=== PATIENT | male | born 1965 | race African-American/Black ===

== ENCOUNTER 2024-11-26 20:23 | Inpatient (IN) | payer OTHER ==
[~2024-11-26] VITALS: Ht 182.9 cm; Wt 136.6 kg
--- NOTE | 2024-11-26 20:54 | ED.PDOC ---
History of Present Illness HPI Comments 59 Year old male who came to ER via EMS for dizziness. 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 He sat down on the curb as his dizziness worsened and persisted. He also had 3 episodes of watery blood-tinged diarrhea. Patient was tachycardic on scene. Patient denies any history of GI bleed. Patient has a syncopal attack while in the ER. Chief Complaint: Dizziness Time Seen by MD: 20:53 Reviewed Notes: Nurses Notes Allergies: Coded Allergies: NO KNOWN ALLERGIES (Unverified , 11/26/24) Information Source: Patient Mode of Arrival: EMS Severity: Moderate Timing: Hours Duration: Since onset Prehospital treatment: Oxygen Past Medical History PAST MEDICAL HISTORY: HTN Surgical History: Hernia Repair Family History Family History: Reviewed,noncontributory to illness Social History Smoker: Non-Smoker Alcohol: Denies ETOH Use Drugs: Denies Drug Use Lives In: Home Constitutional: reports: fatigue, weakness; denies: chills, diaphoresis, fever, malaise, sweats, others EENTM: denies: blurred vision, double vision, ear bleeding, ear discharge, ear drainage, ear pain, ear ringing, eye pain, eye redness, hearing loss, mouth pain, mouth swelling, nasal discharge, nose bleeding, nose congestion, nose pain, photophobia, tearing, throat pain, throat swelling, voice changes, others Respiratory: denies: cough, hemoptysis, orthopnea, SOB at rest, shortness of breath, SOB with excertion, stridor, wheezing, others Cardiovascular: denies: chest pain, dizzy spells, diaphoresis, Dyspnea on exertion, edema, irregular heart beat, left arm pain, lightheadedness, palpitations, PND, syncope, others Gastrointestinal: reports: blood streaked bowels, diarrhea; denies: abdomen distended, abdominal pain, constipated, dysphagia, difficulty swallowing, hematemesis, melena, nausea, poor appetite, poor fluid intake, rectal bleeding, rectal pain, vomiting, others Genitourinary: denies: burning, dysuria, flank pain, frequency, hematuria, incontinence, penile discharge, penile sore, pain, testicle pain, testicle swel ling, urgency, others Neurological: reports: dizziness; denies: fainting, headache, left sided numbness, left sided weakness, numbness, paresthesia, pre-existing deficit, right sided numbness, right sided weakness, seizure, speech problems, tingling, tremors, weakness, others Musculoskeletal: denies: back pain, gout, joint pain, joint swelling, muscle pain, muscle stiffness, neck pain, others Integumetry: denies: bruises, change in color, change in hair/nails, dryness, laceration, lesions, lumps, rash, wounds, others Allergic/Immunocompromised: denies: Difficulty Healing, Frequent Infections, Hives, Itching, others Hematologic/Lymphatic: denies: anemia, blood clots, easy bleeding, easy bruising, swollen glands, others Endocrine: denies: excessive hunger, excessive sweating, excessive thirst, excessive urination, flushing, intolerance to cold, intolerance to heat, unexplained weight gain, unexplained weight loss, others Psychiatric: denies: anxiety, bipolar disorder, depression, hopeless, panic disorder, schizophrenia, sleepless, suicidal, others Physical Exam General Appearance: No Apparent Distress, Normal HEENT: Normal ENT Inspection, Pharynx Normal, TMs Normal Neck: Full Range of Motion, Non-Tender, Normal, Normal Inspection Respiratory: Chest Non-Tender, Lungs Clear, No Accessory Muscle Use, No Respiratory Distress, Normal Breath Sounds Cardiovascular: No Edema, No JVD, No Murmur, No Gallop, Normal Peripheral Pulses, Regular Rate/Rhythm Breast Exam: Deferred Gastrointestinal: No Organomegaly, Non Tender, No Pulsatile Mass, Normal Bowel Sounds, Soft Genitalia: Deferred Pelvic: Deferred Rectal: Deferred Extremities: No calf tenderness, Normal capillary refill, Normal inspection, Normal range of motion, Non-tender, No pedal edema Musculoskeletal : Apperance: Normal Neurologic: Alert, rail splitter II-XII nml as Tested, No Motor Deficits, Normal Affect, Normal Mood, No Sensory Deficits Cerebellar Function: Normal Reflexes: Normal Skin: Dry, Normal Color, Warm Lymphatic: No Adenopathy Was a procedure done? Was a procedure done?: No Differential Dx Considerations may include: Anemia, electrolyte imbalance, GI bleeding, dehydration, dizziness X-Ray, Labs, Meds, VS Vital Signs Date Time Temp Pulse Resp B/P (MAP) Pulse Ox O2 Delivery O2 Flow Rate FiO2 11/26/24 21:50 98.1 93 12 112/72 (85) 100 98.1 11/26/24 21:38 90 19 100 Room Air* 0 21 11/26/24 20:33 97.6 114 18 123/86 95 97.6 11/26/24 20:30 113 Lab Test 11/26/24 21:28 Range/Units White Blood Count 13.5 H 4.4-10.8 10^3/uL Red Blood Count 3.33 L 4.5-5.90 10^6/uL Hemoglobin 9.8 L 13.5-17.5 g/dL Hematocrit 29.6 L 41.0-53.0 % Mean Corpuscular Volume 88.7 80.0-100.0 fL Mean Corpuscular Hemoglobin 29.4 28.0-32.0 pg Mean Corpuscular Hemoglobin Concent 33.1 32.0-36.0 g/dL Red Cell Distribution Width 15.3 H 11.8-14.3 % Platelet Count 293 140-450 10^3/uL Mean Platelet Volume 8.4 6.9-10.8 fL Neutrophils (%) (Auto) 69.5 37.0-80.0 % Lymphocytes (%) (Auto) 21.5 10.0-50.0 % Monocytes (%) (Auto) 7.9 0.0-12.0 % Eosinophils (%) (Auto) 0.5 0.0-7.0 % Basophils (%) (Auto) 0.6 0.0-2.0 % Neutrophils # (Auto) 9.4 H 1.6-8.6 10 ^3/uL Lymphocytes # (Auto) 2.9 0.4-5.4 10 ^3/uL Monocytes # (Auto) 1.1 0-1.3 10 ^3/uL Eosinophils # (Auto) 0.1 0-0.8 10 ^3/uL Basophils # (Auto) 0.1 0-0.2 10 ^3/uL Nucleated Red Blood Cells 0.1 % Prothrombin Time 11.5 9.3-11.8 sec Prothrombin Time INR 1.09 0.9-1.15 Activated Partial Thromboplast Time 22.7 L 24.5-34.5 SEC Sodium Level 144 136-145 mmol/L Potassium Level 3.8 3.5-5.1 mmol/L Chloride Level 114 H 98-107 mmol/L Carbon Dioxide Level 19 L 20-31 mmol/L Anion Gap 11 5-15 Blood Urea Nitrogen 8 L 9-23 mg/dL Creatinine 0.70 0.700-1.30 mg/dL Glomerular Filtration Rate Calc 105 >90 mL/min BUN/Creatinine Ratio 11.4 10.0-20.0 Serum Glucose 128 H 74-106 mg/dL Calcium Level 7.4 L 8.7-10.4 mg/dL Total Bilirubin 0.5 0.2-1.0 mg/dL Aspartate Amino Transferase (AST) 25 13-40 U/L Alanine Aminotransferase (ALT) 12 7-40 U/L Alkaline Phosphatase 54 46-116 U/L Total Protein 5.8 5.7-8.2 g/dL Albumin 3.3 3.2-4.8 g/dL Current Medications Medications (Trade) Dose Ordered Sig/Georgina Route Start Time Stop Time Status Last Admin Sodium Chloride 1,000 ml @ 1,000 mls/hr Q1H ONCE IV 11/26/24 21:00 11/26/24 21:59 DC 11/26/24 21:17 Pantoprazole Sodium (Protonix) 40 mg ONCE ONCE IV 11/26/24 21:00 11/26/24 21:01 DC 11/26/24 21:17 Time of 1ST Reevaluation: 20:50 Reevaluation 1ST: Unchanged Patient Education/Counseling: Diagnosis, Treatment Family Education/Counseling: No Family Present SEPSIS Sepsis Screen Physician Orders Type And Screen (11/26/24 20:47) Urinalysis (11/26/24 20:47) Stool Occult Blood (11/26/24 20:47) Heplock Iv (11/26/24 20:47) Ct Ab Pel With Iv Con Only (11/26/24 20:47) Electrocardigram (11/26/24 20:47) Packedcells -Active Bleeding (11/26/24 20:50) Vital Signs Date Time Temp Pulse Resp B/P (MAP) Pulse Ox O2 Delivery O2 Flow Rate FiO2 11/26/24 21:50 98.1 93 12 112/72 (85) 100 98.1 11/26/24 21:38 90 19 100 Room Air* 0 21 11/26/24 20:33 97.6 114 18 123/86 95 97.6 11/26/24 20:30 113 Laboratory Tests Test 9/29/25 21:28 White Blood Count 13.5 10^3/uL (4.4-10.8) H Medications Medications Dose Ordered Sig/Georgina Route Start Time Stop Time Status Last Admin Dose Admin Pantoprazole Sodium 40 mg ONCE ONCE IV 11/26/24 21:00 11/26/24 21:01 DC 11/26/24 21:17 Sodium Chloride 1,000 ml @ 1,000 mls/hr Q1H ONCE IV 11/26/24 21:00 11/26/24 21:59 DC 11/26/24 21:17 Departure 1 Departure Time of Disposition: 00:45 Impression: Primary Impression: Lower GI bleed Additional Impressions: Syncope Hypotension Disposition: ADMITTED INPATIENT Admit to: Tele Condition: Guarded Discharged With: Self Comments Patient with significant bright red blood per rectum. Patient had hypotension and syncope prior to arrival. Patient was given IV fluids and Protonix. On lab review patient is mildly anemic with H and H of [address] of the abdomen and pelvis was performed and shows no obvious pathology. Patient will need to be admitted for lower GI bleed and syncope and hypotension Critical Care Note Critical Care Time?: Yes (35 min-critical care time only) Critical care comment: Active GI bleeding Total critical care time: Approximately 36 minutes Due to a high probability of clinically significant, life threatening deterioration, the patient required my highest level of preparedness to intervene emergently and I personally spent this critical care time directly and personally managing the patient. This critical care time included obtaining a history; examining the patient; pulse oximetry; ordering and review of studies; arranging urgent treatment with development of a management plan; evaluation of patient's response to treatment; frequent reassessment; and, discussions with other providers. This critical care time was performed to assess and manage the high probability of imminent, life-threatening deterioration that could result in multi-organ failure. It was exclusive of separately billable procedures and treating other patients. Stability Stability form required: No Heart Score Heart Score: Heart Score Response (Comments) Value History N/A 0 EKG N/A 0 Age N/A 0 Risk Factors N/A 0 Troponin N/A 0 Total 0 I personally scribed for BRENDA JANSEN MD ([email or web address]) on 11/26/24 at 20:53. Electronically submitted by Kali Gandhi ([facility]). BRENDA JANSEN MD Nov 26, 2024 20:53
[2024-11-26] MEDS: PANTOPRAZOLE 40 MG/10 ML VIAL INJ IV ONE (21:17)
[2024-11-26] MEDS: SODIUM CHLORIDE 0.9% 1,000 ML IV ONE (21:17)
[2024-11-26 21:38] VITALS: PULSE 90; RESP 19; O2SAT 100
[2024-11-26 22:06] LABS: Hematocrit 29.6 % (41.0-53.0); Hemoglobin 9.8 g/dL (13.5-17.5); Mean Corpuscular Hemoglobin 29.4 pg (28.0-32.0); Mean Corpuscular Volume 88.7 fL (80.0-100.0); Nucleated Red Blood Cells % 0.1 %
[2024-11-26 22:18] LABS: INR 1.09 (0.9-1.15); Partial Thromboplastin Time 22.7 SEC (24.5-34.5); Prothrombin Time 11.5 sec (9.3-11.8)
[2024-11-26 22:24] LABS: Alanine Aminotransferase 12 U/L (7-40); Albumin 3.3 g/dL (3.2-4.8); Alkaline Phosphatase 54 U/L (46-116); Anion Gap 11 (5-15); BUN/Creatinine Ratio 11.4 (10.0-20.0); Bilirubin, Total 0.5 mg/dL (0.2-1.0); Blood Urea Nitrogen 8 mg/dL (9-23); Calcium 7.4 mg/dL (8.7-10.4); Carbon Dioxide 19 mmol/L (20-31); Chloride 114 mmol/L (98-107); Glucose 128 mg/dL (74-106); Potassium 3.8 mmol/L (3.5-5.1); Sodium 144 mmol/L (136-145); Total Protein 5.8 g/dL (5.7-8.2)
[2024-11-26] MEDS: IOHEXOL 300 MG/ML 100ML BOTTLE IJ ONE (22:51)
[2024-11-27] VITALS (7 sets, daily range): BP systolic 115–148; BP diastolic 71–85; PULSE 83–92; RESP 18–20; TEMP 97.8–98.6; O2SAT 96–98
--- NOTE | 2024-11-27 00:14 | DVH ---
Exam: CT CT AB PEL WITH IV CON ONLY History: GI bleed Comparison Study: None TECHNIQUE: A digital wireless network engineer image was obtained. During the uneventful, intravenous administration of c ontrast material, multislice data acquisition was obtained through the abdomen and pelvis. The data s et was subsequently reconstructed into multiplanar reformats. RADIATION DOSE: CTDI vol 27.87 mGy. DLP 1602.2 mGy.cm Findings: Evaluation is degraded by motion and streak artifact. Lungs: The lung bases are clear. Liver: Unremarkable. Spleen: Small splenule. Pancreas: Unremarkable. Gallbladder: Unremarkable. Adrenals: Unremarkable Kidneys: Unremarkable. Pelvic Viscera: Unremarkable. Vasculature: Unremarkable. Retroperitoneum: Unremarkable. Bowel: No bowel obstruction. Musculoskeletal: Unremarkable. Soft tissues: Unremarkable Impression: 1. No acute abdominopelvic abnormality. 2. Suboptimal assessment for active bleeding, if there is clinical concern, CTA may be beneficial in further assessment.
[2024-11-27] MEDS ORDERED: ONDANSETRON HCL 4 MG/2 ML VIAL IV PRN (01:30)
[2024-11-27] MEDS: SODIUM CHLORIDE 0.9% 1,000 ML IV ONE (02:23)
--- NOTE | 2024-11-27 03:55 | DVHHP2 ---
History of Present Illness Reason for Visit: GI bleed History of Present Illness 59-year-old male presents for evaluation of GI bleed. Patient presents with complaints of dizziness for the past two days. Has a reports having three episodes of bloody diarrhea. No headache or blurred vision. No chest pain or shortness for breath. Past Medical History Hypertension Past Surgical History Hernia repair Family History Noncontributory Smoke: No ALCOHOL: none Drugs: None Lives: with Family Review of Systems Review of Systems Review of systems are currently negative otherwise addressed in HPI. Allergies: Coded Allergies: NO KNOWN ALLERGIES (Unverified , 11/26/24) Medications Current Medications Medications Dose Ordered Sig/Georgina Route Start Time Stop Time Status Last Admin Dose Admin Pantoprazole Sodium 40 mg BID IV 11/27/24 10:00 Ondansetron HCl 4 mg Q4HP PRN IV 11/27/24 01:30 Exam Vital Signs Vital Signs Date Time Temp Pulse Resp B/P (MAP) Pulse Ox O2 Delivery O2 Flow Rate FiO2 11/26/24 23:50 96 12 116/71 (86) 100 11/26/24 21:50 98.1 98.1 11/26/24 21:38 Room Air* 0 21 Exam Gen: 59-year-old male in mild distress Skin: Warm, dry, normal color and texture, no rash. HEENT: Normocephalic atraumatic, mucous membranes moist and pink. Neck: Cervical and supraclavicular nodes normal without enlargement, trachea is midline, thyroid gland is normal without masses. Pulmonary: Clear to auscultation and percussion bilaterally. Cardiac: Sinus tachycardia Abdomen: Soft, nontender, nondistended, bowel sounds present all 4 quadrants, no guarding, no rigidity, no organomegaly. Extremities: No cyanosis, clubbing, no edema Neuro: Cranial nerves II through XII grossly intact, normal affect and speech, no focal motor deficits. Labs/Xrays ORDERING PHYSICIAN: BRENDA JANSEN MD PROCEDURE(s): ABPLIV - CT AB PEL WITH IV CON ONLY REASON: GI bleed ORDER NUMBER(s): [id number], ACCESSION NUMBER(s): [id number] Exam: CT CT AB PEL WITH IV CON ONLY History: GI bleed Comparison Study: None TECHNIQUE: A digital dog or horse racing official image was obtained. During the uneventful, intravenous administration of contrast material, multislice data acquisition was obtained through the abdomen and pelvis. The data set was subsequently reconstructed into multiplanar reformats. RADIATION DOSE: CTDI vol 27.87 mGy. DLP 1602.2 mGy.cm Findings: Evaluation is degraded by motion and streak artifact. Lungs: The lung bases are clear. Liver: Unremarkable. Spleen: Small splenule. Pancreas: Unremarkable. Gallbladder: Unremarkable. Adrenals: Unremarkable Kidneys: Unremarkable. Pelvic Viscera: Unremarkable. Vasculature: Unremarkable. Retroperitoneum: Unremarkable. Bowel: No bowel obstruction. Musculoskeletal: Unremarkable. Soft tissues: Unremarkable Impression: 1. No acute abdominopelvic abnormality. 2. Suboptimal assessment for active bleeding, if there is clinical concern, CTA may be beneficial in further assessment. Labs Test 11/26/24 21:28 Range/Units White Blood Count 13.5 H 4.4-10.8 10^3/uL Red Blood Count 3.33 L 4.5-5.90 10^6/uL Hemoglobin 9.8 L 13.5-17.5 g/dL Hematocrit 29.6 L 41.0-53.0 % Mean Corpuscular Volume 88.7 80.0-100.0 fL Mean Corpuscular Hemoglobin 29.4 28.0-32.0 pg Mean Corpuscular Hemoglobin Concent 33.1 32.0-36.0 g/dL Red Cell Distribution Width 15.3 H 11.8-14.3 % Platelet Count 293 140-450 10^3/uL Mean Platelet Volume 8.4 6.9-10.8 fL Neutrophils (%) (Auto) 69.5 37.0-80.0 % Lymphocytes (%) (Auto) 21.5 10.0-50.0 % Monocytes (%) (Auto) 7.9 0.0-12.0 % Eosinophils (%) (Auto) 0.5 0.0-7.0 % Basophils (%) (Auto) 0.6 0.0-2.0 % Neutrophils # (Auto) 9.4 H 1.6-8.6 10 ^3/uL Lymphocytes # (Auto) 2.9 0.4-5.4 10 ^3/uL Monocytes # (Auto) 1.1 0-1.3 10 ^3/uL Eosinophils # (Auto) 0.1 0-0.8 10 ^3/uL Basophils # (Auto) 0.1 0-0.2 10 ^3/uL Nucleated Red Blood Cells 0.1 % Prothrombin Time 11.5 9.3-11.8 sec Prothrombin Time INR 1.09 0.9-1.15 Activated Partial Thromboplast Time 22.7 L 24.5-34.5 SEC Sodium Level 144 136-145 mmol/L Potassium Level 3.8 3.5-5.1 mmol/L Chloride Level 114 H 98-107 mmol/L Carbon Dioxide Level 19 L 20-31 mmol/L Anion Gap 11 5-15 Blood Urea Nitrogen 8 L 9-23 mg/dL Creatinine 0.70 0.700-1.30 mg/dL Glomerular Filtration Rate Calc 105 >90 mL/min BUN/Creatinine Ratio 11.4 10.0-20.0 Serum Glucose 128 H 74-106 mg/dL Calcium Level 7.4 L 8.7-10.4 mg/dL Total Bilirubin 0.5 0.2-1.0 mg/dL Aspartate Amino Transferase (AST) 25 13-40 U/L Alanine Aminotransferase (ALT) 12 7-40 U/L Alkaline Phosphatase 54 46-116 U/L Total Protein 5.8 5.7-8.2 g/dL Albumin 3.3 3.2-4.8 g/dL SEPSIS Sepsis Screen Date sepsis recognized/suspect: Nov 26, 2024 Time Sepsis recognized/suspect: 2147 Recent Procedure: No On Antibiotic Therapy: No Respiratory Rate >20: No Heart Rate >90: Yes Temp<36 C (96.8 F) or >38.3 C: No SBP <90 or MAP <65 mmHG: No New Acute Mental Status Change: No Is the patient on CPAP, BIPAP,: No Physician Orders Type And Screen (11/26/24 20:47) Urinalysis (11/26/24 20:47) Stool Occult Blood (11/26/24 20:47) Heplock Iv (11/26/24 20:47) Ct Ab Pel With Iv Con Only (11/26/24 20:47) Electrocardigram (11/26/24 20:47) Hemoglobin & Hematocrit (11/27/24 04:00) Basic Metabolic Panel (11/28/24 04:00) Sodium Chloride 0.9% (11/27/24 01:30) * Gi [facility] Music Intern (11/27/24 01:24) Pantoprazole (Protonix) (11/27/24 10:00) Admit (11/27/24 01:24) Ondansetron Hcl (Zofran) (11/27/24 01:30) Complete Blood Count (11/28/24 04:00) Npo (Nothing By Mouth) Diet (11/27/24 Breakfast) Condition: Stable (11/27/24 01:24) Bedrest With Bathroom Privileg (11/27/24 01:24) Vital Signs Date Time Temp Pulse Resp B/P (MAP) Pulse Ox O2 Delivery O2 Flow Rate FiO2 11/26/24 23:50 96 12 116/71 (86) 100 11/26/24 21:50 98.1 93 12 112/72 (85) 100 98.1 11/26/24 21:38 90 19 100 Room Air* 0 21 11/26/24 20:52 97 11/26/24 20:33 97.6 114 18 123/86 95 97.6 11/26/24 20:30 113 Laboratory Tests Test 11/26/24 21:28 White Blood Count 13.5 10^3/uL (4.4-10.8) H Medications Medications Dose Ordered Sig/Georgina Route Start Time Stop Time Status Last Admin Dose Admin Pantoprazole Sodium 40 mg ONCE ONCE IV 11/26/24 21:00 11/26/24 21:01 DC 11/26/24 21:17 40 MG Sodium Chloride 1,000 ml @ 80 mls/hr [id number] ONCE IV 11/27/24 01:30 11/27/24 13:59 11/27/24 02:23 80 MLS/HR Sodium Chloride 1,000 ml @ 1,000 mls/hr Q1H ONCE IV 11/26/24 21:00 11/26/24 21:59 DC 11/26/24 21:17 1,000 MLS/HR Assessment/Plan Assessment/Plan Assessment GI bleed Mild anemia secondary to the above Plan Admit the patient to [facility] to the hospitalist Protonix, maintenance IV fluids NPO GI consult Continue treatment per orders. Plan discussed with: Patient My Orders Orders - LESLY MONTGOMERY Procedure Category Date Status Time Hemoglobin & LAB 11/27/24 Logged Hematocrit 04:00 Basic Metabolic Panel LAB 11/28/24 Verified 04:00 Sodium Chloride 0.9% PHA 11/27/24 In Process 01:30 * Gi [facility] [employer] Intern CONS 11/27/24 Transmitted 01:24 Pantoprazole PHA 11/27/24 In Process (Protonix) 10:00 Admit ADMIT 11/27/24 Transmitted 01:24 Ondansetron Hcl PHA 11/27/24 In Process (Zofran) 01:30 Complete Blood Count LAB 11/28/24 Verified 04:00 Npo (Nothing By DIET 11/27/24 Transmitted Mouth) Diet Breakfast Condition: Stable ROVERTO 11/27/24 In Process 01:24 Bedrest With Bathroom ROVERTO 11/27/24 In Process Privileg 01:24 Date of Service: Nov 27, 2024 Billing Provider: LESLY MONTGOMERY Common Visit Codes: [id number] INP/OBS CARE (HIGH) LESLY MONTGOMERY Nov 27, 2024 03:55
--- NOTE | 2024-11-27 06:25 | ECG ---
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
[2024-11-27 06:42] LABS: Hematocrit 30.3 % (41.0-53.0); Hemoglobin 10.4 g/dL (13.5-17.5)
[2024-11-27 09:43] LABS: Urine Protein, UAD Negative (Negative)
[2024-11-27] MEDS: PANTOPRAZOLE 40 MG/10 ML VIAL INJ IV SCH (10:34)
--- NOTE | 2024-11-27 12:58 | DVHINCON2 ---
GI Consult Consult Note GI consult note Date of Consultation: 11/27/2024 Chief Complaint: GI bleed Referring Physician: Abraham RAMIREZ H&P: 59-year-old male presented to ER with complains of dizziness, and had an episode of syncope while in ER. Patient also complaining of rectal bleeding. Only having red blood rectally for one day about four episodes yesterday and one episode today. No rectal pain. Denies hemorrhoids. Patient is status post hemorrhoid surgery one year ago. Last colonoscopy nine years ago unsure about results. Patient denies abdominal pain, slight nausea, denies vomiting. Takes aspirin 81 mg every day last dosage yesterday Past Medical History: Hypertension Past Surgical History: Hernia repair, hemorrhoid surgery Social History: NO smoking, drinking ETOH and use of illegal drugs. Family History: Noncontributory Review of Systems: Constitutional: no fever, chill, weight loss HEENT: no eye pain, no hearing loss, no oral lesion, no scleral icterus Heart: no chest pain, no chest pressure Lung: no cough, no dyspnea with exertion Abdomen: see HPI Physical exam: General: NAD, AAOX3 Chest: lung felder clear to auscultation Heart: RRR, no murmur Abdomen: non-distended, no tenderness to palpation, +BS Labs: Labs Test 11/27/24 06:25 11/27/24 02:50 11/26/24 21:28 11/26/24 09:26 Range/Units Hemoglobin 10.4 L 13.5-17.5 g/dL Hematocrit 30.3 L 41.0-53.0 % Stool Occult Blood Positive Negative Stool Occult Blood Sample #3 Negative White Blood Count 13.5 H 4.4-10.8 10^3/uL Red Blood Count 3.33 L 4.5-5.90 10^6/uL Mean Corpuscular Volume 88.7 80.0-100.0 fL Mean Corpuscular Hemoglobin 29.4 28.0-32.0 pg Mean Corpuscular Hemoglobin Concent 33.1 32.0-36.0 g/dL Red Cell Distribution Width 15.3 H 11.8-14.3 % Platelet Count 293 140-450 10^3/uL Mean Platelet Volume 8.4 6.9-10.8 fL Neutrophils (%) (Auto) 69.5 37.0-80.0 % Lymphocytes (%) (Auto) 21.5 10.0-50.0 % Monocytes (%) (Auto) 7.9 0.0-12.0 % Eosinophils (%) (Auto) 0.5 0.0-7.0 % Basophils (%) (Auto) 0.6 0.0-2.0 % Neutrophils # (Auto) 9.4 H 1.6-8.6 10 ^3/uL Lymphocytes # (Auto) 2.9 0.4-5.4 10 ^3/uL Monocytes # (Auto) 1.1 0-1.3 10 ^3/uL Eosinophils # (Auto) 0.1 0-0.8 10 ^3/uL Basophils # (Auto) 0.1 0-0.2 10 ^3/uL Nucleated Red Blood Cells 0.1 % Prothrombin Time 11.5 9.3-11.8 sec Prothrombin Time INR 1.09 0.9-1.15 Activated Partial Thromboplast Time 22.7 L 24.5-34.5 SEC Sodium Level 144 136-145 mmol/L Potassium Level 3.8 3.5-5.1 mmol/L Chloride Level 114 H 98-107 mmol/L Carbon Dioxide Level 19 L 20-31 mmol/L Anion Gap 11 5-15 Blood Urea Nitrogen 8 L 9-23 mg/dL Creatinine 0.70 0.700-1.30 mg/dL Glomerular Filtration Rate Calc 105 >90 mL/min BUN/Creatinine Ratio 11.4 10.0-20.0 Serum Glucose 128 H 74-106 mg/dL Calcium Level 7.4 L 8.7-10.4 mg/dL Total Bilirubin 0.5 0.2-1.0 mg/dL Aspartate Amino Transferase (AST) 25 13-40 U/L Alanine Aminotransferase (ALT) 12 7-40 U/L Alkaline Phosphatase 54 46-116 U/L Total Protein 5.8 5.7-8.2 g/dL Albumin 3.3 3.2-4.8 g/dL Urine Color Yellow Yellow Urine Clarity Clear Clear Urine pH 5.0 5.0-9.0 Urine Specific [place] 1.050 H 1.001-1.035 Urine Protein Negative Negative Urine Ketones Negative Negative Urine Blood 1+ H Negative /uL Urine Nitrite Negative Negative Urine Bilirubin Negative Negative Urine Urobilinogen Normal Negative mg/dL Urine Leukocyte Esterase Negative Negative /uL Urine RBC 3 0 - 3 /hpf Urine Microscopic WBC 2 0-3 /HPF Urine Squamous Epithelial Cells Few <5 /hpf Urine Bacteria None seen None Seen /hpf Urine Mucus Few None Seen Urine Glucose Normal Normal mg/dL Imaging: CT abdomen pelvis Impression: 1. No acute abdominopelvic abnormality. 2. Suboptimal assessment for active bleeding, if there is clinical concern, CTA may be beneficial in further assessment. Assessment: GI bleed History of hemorrhoids Plan: Discussed with Dr. Leonard - Pt will be scheduled for colonoscopy tomorrow 11/28/2024. Pt was informed of the risks (bleeding, infection, perforation, reaction to sedation medications and cardiopulmonary arrest) and benefit and is agreeable to undergo the procedures. Discussed plan with patient and RN Thank you for this consult Date of Service: Nov 27, 2024 Billing Provider: ROGER DAMON Common Visit Codes: CONSULT ONLY Consultation Codes: [id number] CONSULT <60MIN ROGER DAMON Nov 27, 2024 12:58
--- NOTE | 2024-11-27 13:35 | DVHPN2 ---
Reviewed: H&P Changes from previous H/P or p: No Changes General: Per HPI Objective Vitals Vital Signs Date Time Temp Pulse Resp B/P (MAP) Pulse Ox O2 Delivery O2 Flow Rate FiO2 11/27/24 08:00 88 18 96 Room Air* 0 21 11/27/24 08:00 98.4 122/73 (89) 98.4 Intake/Output Intake and Output 11/27/24 07:00 Intake Total 1300 ml Balance 1300 ml Intake IV Total 1000 ml Other 300 ml # Bowel Movements 2 Exam Gen: 59-year-old male in mild distress Skin: Warm, dry, normal color and texture, no rash. HEENT: Normocephalic atraumatic, mucous membranes moist and pink. Neck: Cervical and supraclavicular nodes normal without enlargement, trachea is midline, thyroid gland is normal without masses. Pulmonary: Clear to auscultation and percussion bilaterally. Cardiac: Sinus tachycardia Abdomen: Soft, nontender, nondistended, bowel sounds present all 4 quadrants, no guarding, no rigidity, no organomegaly. Extremities: No cyanosis, clubbing, no edema Neuro: Cranial nerves II through XII grossly intact, normal affect and speech, no focal motor deficits. Medications Current Medications Medications Dose Ordered Sig/Georgina Route Start Time Stop Time Status Last Admin Dose Admin Pantoprazole Sodium 40 mg BID IV 11/27/24 10:00 11/27/24 10:34 40 MG Ondansetron HCl 4 mg Q4HP PRN IV 11/27/24 01:30 Laboratory Results Laboratory Tests 11/26/24 21:28 11/27/24 06:25 Chemistry Test 11/26/24 21:28 Albumin 3.3 g/dL (3.2-4.8) Calcium Level 7.4 mg/dL (8.7-10.4) L Total Protein 5.8 g/dL (5.7-8.2) Coagulation Test 11/26/24 21:28 Prothrombin Time 11.5 sec (9.3-11.8) Prothrombin Time INR 1.09 (0.9-1.15) Activated Partial Thromboplast Time 22.7 SEC (24.5-34.5) L LFT Test 11/26/24 21:28 Alanine Aminotransferase (ALT) 12 U/L (7-40) Alkaline Phosphatase 54 U/L (46-116) Aspartate Amino Transferase (AST) 25 U/L (13-40) Total Bilirubin 0.5 mg/dL (0.2-1.0) Urinalysis Test 11/26/24 09:26 Urine Color Yellow (Yellow) Urine Clarity Clear (Clear) Urine pH 5.0 (5.0-9.0) Urine Specific [place] 1.050 (1.001-1.035) Urine Protein Negative (Negative) Urine Ketones Negative (Negative) Urine Blood 1+ /uL (Negative) H Urine Nitrite Negative (Negative) Urine Bilirubin Negative (Negative) Urine Urobilinogen Normal mg/dL (Negative) Urine Leukocyte Esterase Negative /uL (Negative) Urine RBC 3 /hpf (0 - 3) Urine Microscopic WBC 2 /HPF (0-3) Urine Squamous Epithelial Cells Few /hpf (<5) Urine Bacteria None seen /hpf (None Seen) Urine Mucus Few (None Seen) Urine Glucose Normal mg/dL (Normal) Labs and/or images reviewed: Labs reviewed by me, Image(s) reviewed by me Assessment/Plan Assessment/Plan 59-year-old male past medical history hypertension presents for evaluation of GI bleed. Patient presents with complaints of dizziness for the past two days. Has a reports having three episodes of bloody diarrhea. No headache or blurred vision. No chest pain or shortness for breath. 11/27, patient admitted overnight, GI is following, started on Protonix NPO. GI plan for colonoscopy tomorrow 11/28. Type and screen was done, patient B positive, 1 unit RBC was given.. Patient's specific gravity on UA is 1.050, significant intravascular volume depletion Diagnosis Lower GI bleed Anemia due to above Leukocytosis, reactive likely, likely due to above Intravascular volume depletion Neutrophilia Hyper tension plan: Protonix GI consult Colonoscopy pending, NPO midnight Typed and screened Med surge Full code Plan discussed with: Patient Date of Service: Nov 27, 2024 Billing Provider: RIKI LEVY MD Common Visit Codes: [id number] INP/OBS CARE(HIGH) RIKI LEVY MD Nov 27, 2024 13:35
[2024-11-27] MEDS: GOLYTELY 4L KIT PO ONE ×2 (15:45→18:04)
[2024-11-28] VITALS (9 sets, daily range): BP systolic 116–133; BP diastolic 70–83; PULSE 89–100; RESP 15–20; TEMP 97.7–98.6; O2SAT 94–99
--- NOTE | 2024-11-28 05:00 | DVH ---
CHEST RADIOGRAPH Indication: PT GOING FOR PROCEDURE Technique: Single frontal view of the chest was obtained COMPARISON: None FINDINGS: Lines and Tubes: None Lungs: Clear Pleura: No effusion. No pneumothorax. Cardiomediastinal contours: Unremarkable Bones: Unremarkable IMPRESSION: 1. No acute disease.
[2024-11-28] MEDS: MAGNESIUM CITRATE SOLUTION 300 ML BTL PO ONE (05:28)
[2024-11-28 06:45] LABS: Hematocrit 25.0 % (41.0-53.0); Hemoglobin 8.6 g/dL (13.5-17.5); Mean Corpuscular Hemoglobin 29.6 pg (28.0-32.0); Mean Corpuscular Volume 85.9 fL (80.0-100.0); Nucleated Red Blood Cells % 0.0 %
[2024-11-28 06:56] LABS: Anion Gap 7 (5-15); Carbon Dioxide 29 mmol/L (20-31)
[2024-11-28 06:59] LABS: Calcium 8.0 mg/dL (8.7-10.4); Chloride 109 mmol/L (98-107); Potassium 3.3 mmol/L (3.5-5.1); Sodium 145 mmol/L (136-145)
[2024-11-28 07:01] LABS: BUN/Creatinine Ratio 13.0 (10.0-20.0); Glucose 103 mg/dL (74-106)
[2024-11-28 07:07] LABS: Blood Urea Nitrogen 9 mg/dL (9-23)
--- NOTE | 2024-11-28 11:41 | DVHPN2 ---
Reviewed: H&P Changes from previous H/P or p: No Changes General: Per HPI Objective Vitals Vital Signs Date Time Temp Pulse Resp B/P (MAP) Pulse Ox O2 Delivery O2 Flow Rate FiO2 11/28/24 09:00 97.7 95 20 116/70 (85) 99 97.7 11/28/24 08:00 Room Air* 0 21 Intake/Output Intake and Output 11/28/24 07:00 Intake Total 1840 ml Balance 1840 ml Intake Oral 1200 ml IV Total 640 ml # Voids 5 # Bowel Movements 9 Medications Current Medications Medications Dose Ordered Sig/Georgina Route Start Time Stop Time Status Last Admin Dose Admin Pantoprazole Sodium 40 mg BID IV 11/27/24 10:00 11/28/24 09:21 40 MG Ondansetron HCl 4 mg Q4HP PRN IV 11/27/24 01:30 Laboratory Results Laboratory Tests 11/28/24 04:46 Chemistry Test 11/28/24 04:46 Calcium Level 8.0 mg/dL (8.7-10.4) L Urinalysis Test 11/26/24 09:26 Urine Color Yellow (Yellow) Urine Clarity Clear (Clear) Urine pH 5.0 (5.0-9.0) Urine Specific [place] 1.050 (1.001-1.035) Urine Protein Negative (Negative) Urine Ketones Negative (Negative) Urine Blood 1+ /uL (Negative) H Urine Nitrite Negative (Negative) Urine Bilirubin Negative (Negative) Urine Urobilinogen Normal mg/dL (Negative) Urine Leukocyte Esterase Negative /uL (Negative) Urine RBC 3 /hpf (0 - 3) Urine Microscopic WBC 2 /HPF (0-3) Urine Squamous Epithelial Cells Few /hpf (<5) Urine Bacteria None seen /hpf (None Seen) Urine Mucus Few (None Seen) Urine Glucose Normal mg/dL (Normal) Labs and/or images reviewed: Labs reviewed by me, Image(s) reviewed by me Assessment/Plan Assessment/Plan Covering for Dr. Wilkes Lower GI bleed : GI consult by Dr. Leonard appreciated, patient getting colonoscopy today Anemia due to above Leukocytosis, reactive likely, likely due to above Intravascular volume depletion Neutrophilia Hypertension Plan discussed with: Patient Date of Service: Nov 28, 2024 Billing Provider: PURVI DAMON MD Common Visit Codes: [id number] INP/OBS CARE(HIGH) PURVI DAMON MD Nov 28, 2024 11:41
[2024-11-28] MEDS: POTASSIUM CHL 20MEQ/100ML 100 ML IV ONE ×3 (11:45→19:19)
[2024-11-28] MEDS ORDERED: MIDAZOLAM HCL 2MG/2ML 2ml VIAL (1mg/ml) ONE (12:39)
[2024-11-28] MEDS ORDERED: fentaNYL CITRATE 100 MCG/2 ML VL ONE (12:39)
[2024-11-28] MEDS ORDERED: PROPOFOL 10 MG/ML 20 ML IV ONE (12:47)
--- NOTE | 2024-11-28 13:13 | DVHOP2 ---
Operative Report DATE OF OPERATION: 11/28/24 PROCEDURE: Diagnostic Colonoscopy. PREOPERATIVE INDICATION: The patient is a 59 -year-old male undergoing colonoscopy for rectal bleeding POSTOPERATIVE DIAGNOSES: 1. Patient had moderate amount of blood and clots present throughout the colon more prominent in the left colon 2. The patient had extensive scattered diverticular disease which was the likely source of bleeding but single clear-cut source was identified 3. 1+internal external hemorrhoids otherwise normal examination up to the cecum and terminal ileum PROCEDURE PERFORMED BY: Zaire Leonard M.D. SCOPE: Olympus videocolonoscope. ASA CLASS: 2 PREOPERATIVE MEDICATIONS: Mac sedation, Dr. Wolfe PROCEDURE IN DETAIL: After obtaining an informed consent, the patient was placed on left lateral decubitus position. He was then sedated with the above medications. A rectal examination was performed that was normal. The colonoscope was then passed through the anus into the rectosigmoid and through the descending, transverse, and ascending colon up to the cecum with visualization of the appendiceal orifice, base of the cecum and the ileocecal valve. The colonoscope was then withdrawn. The distal 5-10 cm of the terminal ileum were normal The patient had moderate amount of blood and clots present throughout the colon more prominent in the left colon There was no bleeding in the distal small bowel and minimal blood in the cecal area. Patient had extensive scattered diverticular disease most prominent in the sigmoid The moderate amount of blood was mostly in the left colon up to the splenic flexure After irrigation aspiration no gross lesions were clearly be identified however the visualization was suboptimal due to clots and blood and red liquid in the colon On retroflexion and straight on view the patient did have trace to 1+ internal hemorrhoids The patient tolerated the procedure well without difficulty. WITHDRAWAL TIME: 7 minutes QUALITY OF THE PREP: [place] Bowel Prep score: Six COMPLICATIONS : None SPECIMENS: None DISPOSITION: Transfer back to the floor Stable PLAN: 1. Continue to monitor in a monitored bed 2.Monitor serial H&H and transfuse again if hemoglobin drops below 8 3. NPO except for ice chips and clear liquids 4. If bleeding continues consider CT angiogram ZAIRE LEONARD MD Nov 28, 2024 13:12
[2024-11-28 19:20] LABS: Hematocrit 24.3 % (41.0-53.0); Hemoglobin 8.5 g/dL (13.5-17.5); Mean Corpuscular Hemoglobin 29.2 pg (28.0-32.0); Mean Corpuscular Volume 83.9 fL (80.0-100.0); Nucleated Red Blood Cells % 0.0 %
[2024-11-29] VITALS (8 sets, daily range): BP systolic 106–135; BP diastolic 60–76; PULSE 57–96; RESP 17–20; TEMP 97.9–98.6; O2SAT 95–98
[2024-11-29 06:05] LABS: Hematocrit 21.7 % (41.0-53.0); Hemoglobin 7.4 g/dL (13.5-17.5); Mean Corpuscular Hemoglobin 28.4 pg (28.0-32.0); Mean Corpuscular Volume 83.5 fL (80.0-100.0); Nucleated Red Blood Cells % 0.0 %
[2024-11-29 06:27] LABS: Alanine Aminotransferase 11 U/L (7-40); Anion Gap 7 (5-15); Carbon Dioxide 25 mmol/L (20-31); Potassium 3.9 mmol/L (3.5-5.1); Sodium 143 mmol/L (136-145)
[2024-11-29 06:28] LABS: Bilirubin, Total 0.4 mg/dL (0.2-1.0)
[2024-11-29 06:31] LABS: Albumin 3.1 g/dL (3.2-4.8); Alkaline Phosphatase 46 U/L (46-116); BUN/Creatinine Ratio 7.9 (10.0-20.0); Blood Urea Nitrogen < 5 mg/dL (9-23); Calcium 8.0 mg/dL (8.7-10.4); Chloride 111 mmol/L (98-107); Glucose 109 mg/dL (74-106); Total Protein 5.3 g/dL (5.7-8.2)
--- NOTE | 2024-11-29 12:42 | DVHPN2 ---
Reviewed: H&P Changes from previous H/P or p: No Changes General: Per HPI Objective Vitals Vital Signs Date Time Temp Pulse Resp B/P (MAP) Pulse Ox O2 Delivery O2 Flow Rate FiO2 11/29/24 09:00 98.0 57 17 135/70 (91) 98 98.0 11/29/24 08:00 Room Air* 0 21 Intake/Output Intake and Output 11/29/24 07:00 Intake Total 1400 ml Balance 1400 ml Intake Oral 1200 ml IV Total 200 ml # Voids 9 Exam Gen: 59-year-old male in mild distress Skin: Warm, dry, normal color and texture, no rash. HEENT: Normocephalic atraumatic, mucous membranes moist and pink. Neck: Cervical and supraclavicular nodes normal without enlargement, trachea is midline, thyroid gland is normal without masses. Pulmonary: Clear to auscultation and percussion bilaterally. Cardiac: Sinus tachycardia Abdomen: Soft, nontender, nondistended, bowel sounds present all 4 quadrants, no guarding, no rigidity, no organomegaly. Extremities: No cyanosis, clubbing, no edema Neuro: Cranial nerves II through XII grossly intact, normal affect and speech, no focal motor deficits. Medications Current Medications Medications Dose Ordered Sig/Georgina Route Start Time Stop Time Status Last Admin Dose Admin Pantoprazole Sodium 40 mg BID IV 11/27/24 10:00 11/29/24 09:03 40 MG Ondansetron HCl 4 mg Q4HP PRN IV 11/27/24 01:30 Laboratory Results Laboratory Tests 11/29/24 05:29 Chemistry Test 11/29/24 05:29 Albumin 3.1 g/dL (3.2-4.8) L Calcium Level 8.0 mg/dL (8.7-10.4) L Total Protein 5.3 g/dL (5.7-8.2) L LFT Test 11/29/24 05:29 Alanine Aminotransferase (ALT) 11 U/L (7-40) Alkaline Phosphatase 46 U/L (46-116) Aspartate Amino Transferase (AST) 10 U/L (13-40) L Total Bilirubin 0.4 mg/dL (0.2-1.0) Urinalysis Test 11/26/24 09:26 Urine Color Yellow (Yellow) Urine Clarity Clear (Clear) Urine pH 5.0 (5.0-9.0) Urine Specific [place] 1.050 (1.001-1.035) Urine Protein Negative (Negative) Urine Ketones Negative (Negative) Urine Blood 1+ /uL (Negative) H Urine Nitrite Negative (Negative) Urine Bilirubin Negative (Negative) Urine Urobilinogen Normal mg/dL (Negative) Urine Leukocyte Esterase Negative /uL (Negative) Urine RBC 3 /hpf (0 - 3) Urine Microscopic WBC 2 /HPF (0-3) Urine Squamous Epithelial Cells Few /hpf (<5) Urine Bacteria None seen /hpf (None Seen) Urine Mucus Few (None Seen) Urine Glucose Normal mg/dL (Normal) Labs and/or images reviewed: Labs reviewed by me, Image(s) reviewed by me Assessment/Plan Assessment/Plan 59-year-old male past medical history hypertension presents for evaluation of GI bleed. Patient presents with complaints of dizziness for the past two days. Has a reports having three episodes of bloody diarrhea. No headache or blurred vision. No chest pain or shortness for breath. 11/27, patient admitted overnight, GI is following, started on Protonix NPO. GI plan for colonoscopy tomorrow 11/28. Type and screen was done, patient B positive, 1 unit RBC was given.. Patient's specific gravity on UA is 1.050, significant intravascular volume depletion 11/29: Patient's hemoglobin drop again 8.5-7.4, no conjunctival pallor, no dizziness/presyncope, but there is decreased capillary refill bilateral hands. We will repeat H&H and if running low we will transfuse or if symptomatic. Per GI if patient is bleeding again need CT angio. Patient is not bleeding, having normal bowel movement. Diagnosis: Lower GI bleed Anemia due to above Leukocytosis, reactive likely, likely due to above Intravascular volume depletion Neutrophilia Hyper tension plan: Protonix GI consult Colonoscopy pending, NPO midnight Typed and screened Med surge Full code Plan discussed with: Patient My Orders Orders - RIKI LEVY MD Procedure Category Date Status Time Hemoglobin & LAB 11/29/24 Logged Hematocrit 10:07 Date of Service: Nov 29, 2024 Billing Provider: RIKI LEVY MD Common Visit Codes: [id number] INP/OBS CARE(HIGH) RIKI LEVY MD Nov 29, 2024 12:42
[2024-11-29 12:44] LABS: Hematocrit 22.0 % (41.0-53.0); Hemoglobin 7.4 g/dL (13.5-17.5)
--- NOTE | 2024-11-29 21:58 | DVHPN2 ---
Progress Note - Dictate Date Seen: Nov 29, 2024 Medical Necessity Reason Pt with a Central, PICC or Fol: No Subjective Patient continued to have rectal bleeding today along with passage of some clots Hemoglobin drifted down to 7.4 but has remained stable Patient is otherwise asymptomatic vital signs Vital Sign Date Time Temp Pulse Resp B/P (MAP) Pulse Ox O2 Delivery O2 Flow Rate FiO2 11/29/24 17:00 98.6 80 18 106/76 (86) 97 98.6 11/29/24 08:00 Room Air* 0 21 Total Intake and Output 11/28/24 11/28/24 11/29/24 15:00 23:00 07:00 Intake Total 100 ml 950 ml 350 ml Balance 100 ml 950 ml 350 ml medications Current Medications Medications Dose Ordered Sig/Georgina Route Start Time Stop Time Status Last Admin Dose Admin Pantoprazole Sodium 40 mg BID IV 11/27/24 10:00 11/29/24 21:14 40 MG Ondansetron HCl 4 mg Q4HP PRN IV 11/27/24 01:30 objective Gen: 59-year-old male in no distress Skin: Warm, dry, normal color and texture, no rash. HEENT: Normocephalic atraumatic, mucous membranes moist and pink. Neck: Cervical and supraclavicular nodes normal without enlargement, trachea is midline, thyroid gland is normal without masses. Pulmonary: Clear to auscultation and percussion bilaterally. Cardiac: Sinus tachycardia Abdomen: Soft, nontender, nondistended, bowel sounds present all 4 quadrants, no guarding, no rigidity, no organomegaly.;morbid obesity Extremities: No cyanosis, clubbing, no edema Neuro: Cranial nerves II through XII grossly intact, normal affect and speech, no focal motor deficits. laboratory and microbiology Laboratory Tests 11/29/24 05:29 Test 11/29/24 05:29 Range/Units Serum Glucose 109 H 74-106 mg/dL Problems(with codes): (1) Internal and external hemorrhoids without complication (2) Diverticular hemorrhage (3) Lower GI bleed (4) Hypotension (5) Syncope Prognosis Plan Continue to monitor labs with H&H every 8 hours If the hemoglobin drops below seven we will transfuse him 1 unit PRBC Patient has been scheduled for CTAngiogram abdomen\ Clear liquid diet, IV ppi Correct coagulopathy, hold any aspirin NSAIDs blood thinners I will follow up patient with you Plan discussed with: Other (Dr Wilkes) ZAIRE MIDDLETON MD Nov 29, 2024 21:58
[2024-11-29 22:07] LABS: Hematocrit 21.2 % (41.0-53.0); Hemoglobin 7.4 g/dL (13.5-17.5)
[2024-11-30] VITALS (11 sets, daily range): BP systolic 120–137; BP diastolic 66–98; PULSE 77–88; RESP 16–19; TEMP 97.8–98.4; O2SAT 95–100
[2024-11-30] MEDS: ACETAMINOPHEN 325 MG TAB PO PRN (01:00)
[2024-11-30 05:55] LABS: Hematocrit 20.2 % (41.0-53.0)
[2024-11-30 05:57] LABS: Mean Corpuscular Hemoglobin 30.7 pg (28.0-32.0); Mean Corpuscular Volume 88.0 fL (80.0-100.0); Nucleated Red Blood Cells % 0.0 %
[2024-11-30 06:24] LABS: Hemoglobin 7.0 g/dL (13.5-17.5)
--- NOTE | 2024-11-30 09:02 | DVHPN2 ---
Reviewed: H&P Changes from previous H/P or p: No Changes General: Per HPI Objective Vitals Vital Signs Date Time Temp Pulse Resp B/P (MAP) Pulse Ox O2 Delivery O2 Flow Rate FiO2 11/30/24 04:47 98.0 79 18 128/66 (86) 95 98.0 11/29/24 20:00 Room Air* 0 21 Intake/Output Intake and Output 11/30/24 07:00 Intake Total 2030 ml Balance 2030 ml Intake Oral 2030 ml # Voids 7 Exam Gen: 59-year-old male in mild distress Skin: Warm, dry, normal color and texture, no rash. HEENT: Normocephalic atraumatic, mucous membranes moist and pink. Neck: Cervical and supraclavicular nodes normal without enlargement, trachea is midline, thyroid gland is normal without masses. Pulmonary: Clear to auscultation and percussion bilaterally. Cardiac: Sinus tachycardia Abdomen: Soft, nontender, nondistended, bowel sounds present all 4 quadrants, no guarding, no rigidity, no organomegaly. Extremities: No cyanosis, clubbing, no edema Neuro: Cranial nerves II through XII grossly intact, normal affect and speech, no focal motor deficits. Medications Current Medications Medications Dose Ordered Sig/Georgina Route Start Time Stop Time Status Last Admin Dose Admin Pantoprazole Sodium 40 mg BID IV 11/27/24 10:00 11/29/24 21:14 40 MG Ondansetron HCl 4 mg Q4HP PRN IV 11/27/24 01:30 Acetaminophen 650 mg Q6HP PRN PO 11/30/24 01:00 11/30/24 01:00 650 MG Laboratory Results Laboratory Tests 11/29/24 05:29 11/30/24 05:12 Urinalysis Test 11/26/24 09:26 Urine Color Yellow (Yellow) Urine Clarity Clear (Clear) Urine pH 5.0 (5.0-9.0) Urine Specific [place] 1.050 (1.001-1.035) Urine Protein Negative (Negative) Urine Ketones Negative (Negative) Urine Blood 1+ /uL (Negative) H Urine Nitrite Negative (Negative) Urine Bilirubin Negative (Negative) Urine Urobilinogen Normal mg/dL (Negative) Urine Leukocyte Esterase Negative /uL (Negative) Urine RBC 3 /hpf (0 - 3) Urine Microscopic WBC 2 /HPF (0-3) Urine Squamous Epithelial Cells Few /hpf (<5) Urine Bacteria None seen /hpf (None Seen) Urine Mucus Few (None Seen) Urine Glucose Normal mg/dL (Normal) Labs and/or images reviewed: Labs reviewed by me, Image(s) reviewed by me Assessment/Plan Assessment/Plan 59-year-old male past medical history hypertension presents for evaluation of GI bleed. Patient presents with complaints of dizziness for the past two days. Has a reports having three episodes of bloody diarrhea. No headache or blurred vision. No chest pain or shortness for breath. 11/27, patient admitted overnight, GI is following, started on Protonix NPO. GI plan for colonoscopy tomorrow 11/28. Type and screen was done, patient B positive, 1 unit RBC was given.. Patient's specific gravity on UA is 1.050, significant intravascular volume depletion 11/29: Patient's hemoglobin drop again 8.5-7.4, no conjunctival pallor, no dizziness/presyncope, but there is decreased capillary refill bilateral hands. We will repeat H&H and if running low we will transfuse or if symptomatic. Per GI if patient is bleeding again need CT angio. Patient is not bleeding, having normal bowel movement. 11/30: Hemoglobin continues dropping this morning 7.0, transfuse 1 unit packed RBC, GI following and aware. CT abdomen angio to look for bleeds today. Appreciate GI follow up. Continue holding any Lovenox anticoagulants. H&H q12 hours Diagnosis: Lower GI bleed Anemia due to above Leukocytosis, reactive likely, likely due to above Intravascular volume depletion Neutrophilia Hyper tension plan: Protonix GI consult Typed and screened Appreciate GI follow up. Continue holding any Lovenox anticoagulants. H&H q12 hours pRBC if Hb<7 Med surge Full code Plan discussed with: Patient My Orders Orders - RIKI LEVY MD Procedure Category Date Status Time Angio Aortic Abdominal CT 11/30/24 Logged 07:39 Date of Service: Nov 30, 2024 Billing Provider: RIKI LEVY MD Common Visit Codes: [id number] INP/OBS CARE(HIGH) RIKI LVEY MD Nov 30, 2024 09:02
[2024-11-30] MEDS: IOHEXOL 350 MG/ML 100ML IJ ONE (11:30)
--- NOTE | 2024-11-30 12:20 | DVHPN2 ---
Progress Note Date Seen: Nov 30, 2024 Resident Creating Document: LOLA MEI RESIDENT Medical Necessity Reason Pt with a Central, PICC or Fol: No Subjective Review of Systems Patient seen and examined at bedside Denies any abdominal pain Denies any nausea or vomiting Last bowel movement on Tuesday and was bloody, no further bowel movements since then Patient is tolerating a clear liquid diet. Hemoglobin dropped to 7, s/p 1 PRBC (2 PRBCs in total during this hospitalization) Objective vital signs Vital Sign Date Time Temp Pulse Resp B/P (MAP) Pulse Ox O2 Delivery O2 Flow Rate FiO2 11/30/24 09:00 98.1 83 18 133/74 (93) 98 98.1 11/29/24 20:00 Room Air* 0 21 Total Intake and Output 11/29/24 11/29/24 11/30/24 15:00 23:00 07:00 Intake Total 1115 ml 915 ml Balance 1115 ml 915 ml medications Current Medications Medications Dose Ordered Sig/Georgina Route Start Time Stop Time Status Last Admin Dose Admin Pantoprazole Sodium 40 mg BID IV 11/27/24 10:00 11/30/24 10:06 40 MG Ondansetron HCl 4 mg Q4HP PRN IV 11/27/24 01:30 Acetaminophen 650 mg Q6HP PRN PO 11/30/24 01:00 11/30/24 01:00 650 MG Examination General Appearance: Cooperative. Well developed. Well nourished. NAD Pulmonary/Respiratory: Equal bilateral air entry Cardiovascular/Chest: Regular rate and rhythm. Abdominal Exam: slightly decreased bowel sounds. Soft. no visible veins, Nontender. Ankle Exam: Negative ankle edema Neuro/Mental Status: A&O x4. Coherent. Thoughts/Psych: Normal thought pattern. Appropriate mood and affect. Good judgement and insight Skin Exam: Normal inspection. Normal color. Warm. Dry laboratory and microbiology Laboratory Tests 11/30/24 05:12 11/29/24 05:29 Test 11/29/24 05:29 Range/Units Serum Glucose 109 H 74-106 mg/dL Labs and/or images reviewed: Labs reviewed by me, Image(s) reviewed by me Problem List/Assessment/Plan Problem List/Assessment/Plan Acute diverticular bleed Acute blood loss anemia due to above Extensive, scattered diverticular disease 1+ internal/external hemorrhoids Plan: CT abdomen pelvis: No acute abdominopelvic abnormality. Abdominal angiography: No evidence for arterial extravasation. Colonic diverticular disease. Hepatic steatosis. Mild atherosclerotic disease. 2 mm nonobstructing left renal calculus. Prostatomegaly. S/p 2 PRBCs (most recent 1 on 11/30/24) Continue to monitor H&H Q 8 hours Transfuse to keep hemoglobin above 7 Continue clear liquid diet IV Protonix Counseled patient to avoid aspirin, ibuprofen, Advil, Motrin, Alleve Avoid smoking, spicy foods. Patient demonstrated understanding. Thank you so much for the opportunity to consult on your patient. GI team will follow the patient. In case of any questions or concerns please feel free to reach out. Plan discussed with Dr. Leonard Plan discussed with: Patient, Other (RN) LOLA MEI RESIDENT Nov 30, 2024 12:20
--- NOTE | 2024-11-30 13:20 | DVH ---
Indication: CTA ABD,LGIB STUDY Technique: CT axial images of the abdomen and pelvis are obtained with intravenous contrast per nik ogram protocol. Coronal and sagittal reformats were obtained. Radiation Dose Information: CTDI volume is 28.49 mGy. Dose-length product is 1492 mGy*cm Comparison: 11/27/2024 FINDINGS: Lung bases demonstrate no pleural effusion. Adrenal glands, spleen, pancreas unremarkable. Hepatic steatosis. No CT evidence for cholelithiasis. No hydronephrosis. Nonobstructing left renal calculus measuring 2 mm. Stomach partially distended. Small bowel loops are normal in caliber. Colonic diverticular disease. Moderate volume stool in the colon. Normal appendix. The abdominal aorta is normal in caliber without evidence for aneurysmal dilatation. No arterial extr avasation seen. Mild aortic atherosclerotic calcification disease. The bilateral common, external romel ac arteries demonstrate no high-grade stenoses. [id number] thoracolumbar degenerative disc disease. Prostate measures 5.8 cm transversely IMPRESSION: No evidence for arterial extravasation. Colonic diverticular disease. Hepatic steatosis. Mild atherosclerotic disease. 2 mm nonobstructing left renal calculus. Prostatomegaly. Correlate with PSA levels. Other findings as described.
[2024-11-30 21:35] LABS: Hematocrit 24.0 % (41.0-53.0); Hemoglobin 8.2 g/dL (13.5-17.5)
[2024-12-01] VITALS (7 sets, daily range): BP systolic 120–138; BP diastolic 67–77; PULSE 73–89; RESP 17–21; TEMP 97.7–98.2; O2SAT 94–97
[2024-12-01 07:04] LABS: Hematocrit 24.8 % (41.0-53.0); Hemoglobin 8.8 g/dL (13.5-17.5); Mean Corpuscular Hemoglobin 30.4 pg (28.0-32.0); Mean Corpuscular Volume 86.1 fL (80.0-100.0); Nucleated Red Blood Cells % 0.0 %
[2024-12-01 07:08] LABS: Anion Gap 10 (5-15); Carbon Dioxide 26 mmol/L (20-31)
[2024-12-01 07:11] LABS: Calcium 8.6 mg/dL (8.7-10.4); Chloride 110 mmol/L (98-107); Potassium 3.5 mmol/L (3.5-5.1); Sodium 146 mmol/L (136-145)
[2024-12-01 07:15] LABS: Glucose 83 mg/dL (74-106)
[2024-12-01 07:19] LABS: BUN/Creatinine Ratio 8.1 (10.0-20.0); Blood Urea Nitrogen < 5 mg/dL (9-23)
[2024-12-01] MEDS: IRON SUCROSE COMPLEX 110 ML IV SCH (10:55)
--- NOTE | 2024-12-01 11:39 | DVHPN2 ---
Reviewed: Care Plan, H&P Changes from previous H/P or p: No Changes General: Per HPI Objective Vitals Vital Signs Date Time Temp Pulse Resp B/P (MAP) Pulse Ox O2 Delivery O2 Flow Rate FiO2 12/01/24 09:00 97.7 73 17 126/71 (89) 97 97.7 12/01/24 08:00 Room Air* 0 21 Intake/Output Intake and Output 12/01/24 07:00 Intake Total 1695 ml Balance 1695 ml Intake Oral 1395 ml Blood Product 300 ml # Voids 11 Medications Current Medications Medications Dose Ordered Sig/Georgina Route Start Time Stop Time Status Last Admin Dose Admin Pantoprazole Sodium 40 mg BID IV 11/27/24 10:00 12/01/24 09:40 40 MG Ondansetron HCl 4 mg Q4HP PRN IV 11/27/24 01:30 Acetaminophen 650 mg Q6HP PRN PO 11/30/24 01:00 11/30/24 01:00 650 MG Iron Sucrose 110 ml @ 110 mls/hr DAILY@1200 IV 12/01/24 12:00 12/05/24 12:59 12/01/24 10:55 110 MLS/HR Laboratory Results Laboratory Tests 12/01/24 05:26 Chemistry Test 12/01/24 05:26 Calcium Level 8.6 mg/dL (8.7-10.4) L Urinalysis Test 11/26/24 09:26 Urine Color Yellow (Yellow) Urine Clarity Clear (Clear) Urine pH 5.0 (5.0-9.0) Urine Specific [place] 1.050 (1.001-1.035) Urine Protein Negative (Negative) Urine Ketones Negative (Negative) Urine Blood 1+ /uL (Negative) H Urine Nitrite Negative (Negative) Urine Bilirubin Negative (Negative) Urine Urobilinogen Normal mg/dL (Negative) Urine Leukocyte Esterase Negative /uL (Negative) Urine RBC 3 /hpf (0 - 3) Urine Microscopic WBC 2 /HPF (0-3) Urine Squamous Epithelial Cells Few /hpf (<5) Urine Bacteria None seen /hpf (None Seen) Urine Mucus Few (None Seen) Urine Glucose Normal mg/dL (Normal) Labs and/or images reviewed: Labs reviewed by me, Image(s) reviewed by me Assessment/Plan Assessment/Plan Covering for Dr. Wilkes Lower GI bleed : GI consult appreciated Anemia due to above status post 2 units RBC transfusion Leukocytosis, reactive likely, likely due to above Intravascular volume depletion Neutrophilia Hypertension Abdominal angiography negative for any arterial bleeding Plan discussed with: Patient Date of Service: Dec 01, 2024 Billing Provider: PURVI DAMON MD Common Visit Codes: [id number] INP/OBS CARE(HIGH) PURVI DAMON MD Dec 01, 2024 11:39
[2024-12-02] VITALS (8 sets, daily range): BP systolic 122–143; BP diastolic 67–92; PULSE 68–88; RESP 17–20; TEMP 97.8–98.6; O2SAT 95–99
[2024-12-02 06:55] LABS: Hematocrit 26.5 % (41.0-53.0); Hemoglobin 9.0 g/dL (13.5-17.5); Mean Corpuscular Hemoglobin 29.9 pg (28.0-32.0); Mean Corpuscular Volume 87.6 fL (80.0-100.0); Nucleated Red Blood Cells % 0.0 %
--- NOTE | 2024-12-02 08:46 | DVHPN2 ---
Reviewed: Care Plan, H&P Changes from previous H/P or p: No Changes General: Per HPI Objective Vitals Vital Signs Date Time Temp Pulse Resp B/P (MAP) Pulse Ox O2 Delivery O2 Flow Rate FiO2 12/02/24 05:00 98.1 88 20 123/67 (85) 96 98.1 12/01/24 20:00 Room Air* 0 21 Intake/Output Intake and Output 12/02/24 07:00 Intake Total 1830 ml Balance 1830 ml Intake Oral 1720 ml IV Total 110 ml # Voids 8 # Bowel Movements 1 Medications Current Medications Medications Dose Ordered Sig/Georgina Route Start Time Stop Time Status Last Admin Dose Admin Pantoprazole Sodium 40 mg BID IV 11/27/24 10:00 12/02/24 08:34 40 MG Ondansetron HCl 4 mg Q4HP PRN IV 11/27/24 01:30 Acetaminophen 650 mg Q6HP PRN PO 11/30/24 01:00 11/30/24 01:00 650 MG Iron Sucrose 110 ml @ 110 mls/hr DAILY@1200 IV 12/01/24 12:00 12/05/24 12:59 12/01/24 10:55 110 MLS/HR Laboratory Results Laboratory Tests 12/01/24 05:26 12/02/24 05:30 Urinalysis Test 11/26/24 09:26 Urine Color Yellow (Yellow) Urine Clarity Clear (Clear) Urine pH 5.0 (5.0-9.0) Urine Specific [place] 1.050 (1.001-1.035) Urine Protein Negative (Negative) Urine Ketones Negative (Negative) Urine Blood 1+ /uL (Negative) H Urine Nitrite Negative (Negative) Urine Bilirubin Negative (Negative) Urine Urobilinogen Normal mg/dL (Negative) Urine Leukocyte Esterase Negative /uL (Negative) Urine RBC 3 /hpf (0 - 3) Urine Microscopic WBC 2 /HPF (0-3) Urine Squamous Epithelial Cells Few /hpf (<5) Urine Bacteria None seen /hpf (None Seen) Urine Mucus Few (None Seen) Urine Glucose Normal mg/dL (Normal) Labs and/or images reviewed: Labs reviewed by me, Image(s) reviewed by me Assessment/Plan Assessment/Plan Covering for Dr. Wilkes Lower GI bleed : GI consult appreciated Anemia due to above status post 2 units RBC transfusion, hemoglobin stable at 9.0 Leukocytosis, reactive likely, likely due to above Intravascular volume depletion Neutrophilia Hypertension Abdominal angiography negative for any arterial bleeding Plan discussed with: Patient My Orders Orders - PURVI DAMON MD Procedure Category Date Status Time Complete Blood Count LAB 12/03/24 Verified 05:00 Complete Blood Count LAB 12/04/24 Verified 05:00 Date of Service: Dec 02, 2024 Billing Provider: PURVI DAMON MD Common Visit Codes: [id number] INP/OBS CARE(HIGH) PURVI DAMON MD Dec 02, 2024 08:46
--- NOTE | 2024-12-02 20:19 | DVHPN2 ---
Progress Note - Dictate Date Seen: Dec 02, 2024 Medical Necessity Reason Pt with a Central, PICC or Fol: No Subjective Patient had three bowel movements today, rectal bleeding decreasing Hemoglobin stable at 9.2 S/P 2 units PRBC on this admission Patient is otherwise asymptomatic vital signs Vital Sign Date Time Temp Pulse Resp B/P (MAP) Pulse Ox O2 Delivery O2 Flow Rate FiO2 12/02/24 17:00 97.8 85 18 143/92 (109) 97 97.8 12/02/24 07:55 Room Air* 0 21 Total Intake and Output 12/01/24 12/01/24 12/02/24 14:59 22:59 06:59 Intake Total 110 ml 800 ml 920 ml Balance 110 ml 800 ml 920 ml medications Current Medications Medications Dose Ordered Sig/Georgina Route Start Time Stop Time Status Last Admin Dose Admin Pantoprazole Sodium 40 mg BID IV 11/27/24 10:00 12/02/24 08:34 40 MG Ondansetron HCl 4 mg Q4HP PRN IV 11/27/24 01:30 Acetaminophen 650 mg Q6HP PRN PO 11/30/24 01:00 11/30/24 01:00 650 MG Iron Sucrose 110 ml @ 110 mls/hr DAILY@1200 IV 12/01/24 12:00 12/05/24 12:59 12/02/24 12:03 110 MLS/HR objective Gen: 59-year-old male in no distress Skin: Warm, dry, normal color and texture, no rash. HEENT: Normocephalic atraumatic, mucous membranes moist and pink. Neck: Cervical and supraclavicular nodes normal without enlargement, trachea is midline, thyroid gland is normal without masses. Pulmonary: Clear to auscultation and percussion bilaterally. Cardiac: Sinus tachycardia Abdomen: Soft, nontender, nondistended, bowel sounds present all 4 quadrants, no guarding, no rigidity, no organomegaly.;morbid obesity Extremities: No cyanosis, clubbing, no edema Neuro: Cranial nerves II through XII grossly intact, normal affect and speech, no focal motor deficits. laboratory and microbiology Laboratory Tests 12/02/24 05:30 12/01/24 05:26 Test 12/01/24 05:26 Range/Units Serum Glucose 83 74-106 mg/dL Problems(with codes): (1) Diverticular hemorrhage (2) Internal and external hemorrhoids without complication (3) Lower GI bleed Prognosis Plan Advance to full liquid diet Continue to monitor labs Ambulate patient continue PT Discharge planning once the patient's bleeding results Patient was stating that he had taken baby aspirin regularly and recently had added some NSAIDs Patient had been counseled about DC aspirin and NSAIDs at this time and not to take them together Outpatient follow up with GI Services upon discharge for any ongoing symptoms Dietary Evaluation Review Recommendations by RD: Dietary education by RD Comments: 1) Advance to cardiac diet when medically feasible 2) Refer to outpatient RD for weight management 3) Follow-up with gastroenterology and cardiology 4) Continue to monitor I&O, labs, and skin integrity Expected Outcomes/Goals: 1) appetite and labs to improve 2) diet to advance 3) gradual wt loss 4) f/u in 3-5 days Plan discussed with: Patient ZAIRE MIDDLETON MD Dec 02, 2024 20:19
[2024-12-03 05:00] VITALS: BP 122/71; PULSE 81; RESP 18; TEMP 98.1; O2SAT 95
[2024-12-03 06:59] LABS: Hematocrit 27.5 % (41.0-53.0); Hemoglobin 9.4 g/dL (13.5-17.5); Mean Corpuscular Hemoglobin 29.2 pg (28.0-32.0); Mean Corpuscular Volume 85.5 fL (80.0-100.0); Nucleated Red Blood Cells % 0.0 %
[2024-12-03 07:40] VITALS: PULSE 79; RESP 18; O2SAT 94
[2024-12-03 08:00] VITALS: PULSE 77
[2024-12-03 08:51] VITALS: BP 142/69; PULSE 79; RESP 18; TEMP 98.1; O2SAT 94
[2024-12-03] MEDS ORDERED: FERR-7 PO (10:16)
[2024-12-03] MEDS ORDERED: PANT40T PO (10:16)
--- NOTE | 2024-12-03 10:17 | DVHPN2 ---
Reviewed: Care Plan, H&P Changes from previous H/P or p: No Changes General: Per HPI Objective Vitals Vital Signs Date Time Temp Pulse Resp B/P (MAP) Pulse Ox O2 Delivery O2 Flow Rate FiO2 12/03/24 08:51 98.1 79 18 142/69 (93) 94 98.1 12/03/24 07:40 Room Air* 0 21 Intake/Output Intake and Output 12/03/24 07:00 Intake Total 1560 ml Balance 1560 ml Intake Oral 1450 ml IV Total 110 ml # Voids 7 # Bowel Movements 2 Medications Current Medications Medications Dose Ordered Sig/Georgina Route Start Time Stop Time Status Last Admin Dose Admin Pantoprazole Sodium 40 mg BID IV 11/27/24 10:00 12/03/24 09:57 40 MG Ondansetron HCl 4 mg Q4HP PRN IV 11/27/24 01:30 Acetaminophen 650 mg Q6HP PRN PO 11/30/24 01:00 11/30/24 01:00 650 MG Iron Sucrose 110 ml @ 110 mls/hr DAILY@1200 IV 12/01/24 12:00 12/05/24 12:59 12/02/24 12:03 110 MLS/HR Laboratory Results Laboratory Tests 12/01/24 05:26 12/03/24 05:05 Urinalysis Test 11/26/24 09:26 Urine Color Yellow (Yellow) Urine Clarity Clear (Clear) Urine pH 5.0 (5.0-9.0) Urine Specific [place] 1.050 (1.001-1.035) Urine Protein Negative (Negative) Urine Ketones Negative (Negative) Urine Blood 1+ /uL (Negative) H Urine Nitrite Negative (Negative) Urine Bilirubin Negative (Negative) Urine Urobilinogen Normal mg/dL (Negative) Urine Leukocyte Esterase Negative /uL (Negative) Urine RBC 3 /hpf (0 - 3) Urine Microscopic WBC 2 /HPF (0-3) Urine Squamous Epithelial Cells Few /hpf (<5) Urine Bacteria None seen /hpf (None Seen) Urine Mucus Few (None Seen) Urine Glucose Normal mg/dL (Normal) Labs and/or images reviewed: Labs reviewed by me, Image(s) reviewed by me Assessment/Plan Assessment/Plan Covering for Dr. Wilkes Lower GI bleed : GI consult appreciated, GI bleed secondary to diverticular disease and external hemorrhoids Anemia due to above status post 2 units RBC transfusion, hemoglobin stable at 9.0 Leukocytosis, reactive likely, likely due to above Intravascular volume depletion Neutrophilia Hypertension Abdominal angiography negative for any arterial bleeding Patient feels better and wants to go home Plan discussed with: Patient Date of Service: Dec 03, 2024 Billing Provider: PURVI DAMON MD Common Visit Codes: [id number] INP/OBS CARE(HIGH) PURVI DAMON MD Dec 03, 2024 10:17
--- NOTE | 2024-12-03 10:24 | DVHDS2 ---
Discharge Summary Date of Admission Nov 27, 2024 at 01:24 Date of Discharge: Dec 03, 2024 Admitting Diagnosis Lower GI bleed Wounds: Colonoscopy Labs/Diagnostic Data: Laboratory Results Test 12/03/24 05:05 12/01/24 05:26 11/29/24 05:29 11/27/24 02:50 White Blood Count 10.6 10^3/uL (4.4-10.8) Red Blood Count 3.22 10^6/uL (4.5-5.90) Hemoglobin 9.4 g/dL (13.5-17.5) Hematocrit 27.5 % (41.0-53.0) Mean Corpuscular Volume 85.5 fL (80.0-100.0) Mean Corpuscular Hemoglobin 29.2 pg (28.0-32.0) Mean Corpuscular Hemoglobin Concent 34.2 g/dL (32.0-36.0) Red Cell Distribution Width 17.1 % (11.8-14.3) Platelet Count 346 10^3/uL (140-450) Mean Platelet Volume 7.7 fL (6.9-10.8) Neutrophils (%) (Auto) 68.9 % (37.0-80.0) Lymphocytes (%) (Auto) 20.1 % (10.0-50.0) Monocytes (%) (Auto) 8.0 % (0.0-12.0) Eosinophils (%) (Auto) 2.6 % (0.0-7.0) Basophils (%) (Auto) 0.4 % (0.0-2.0) Neutrophils # (Auto) 7.3 10 ^3/uL (1.6-8.6) Lymphocytes # (Auto) 2.1 10 ^3/uL (0.4-5.4) Monocytes # (Auto) 0.8 10 ^3/uL (0-1.3) Eosinophils # (Auto) 0.3 10 ^3/uL (0-0.8) Basophils # (Auto) 0 10 ^3/uL (0-0.2) Nucleated Red Blood Cells 0.0 % Sodium Level 146 mmol/L (136-145) Potassium Level 3.5 mmol/L (3.5-5.1) Chloride Level 110 mmol/L (98-107) Carbon Dioxide Level 26 mmol/L (20-31) Anion Gap 10 (5-15) Blood Urea Nitrogen < 5 mg/dL (9-23) Creatinine 0.62 mg/dL (0.700-1.30) Glomerular Filtration Rate Calc 109 mL/min (>90) BUN/Creatinine Ratio 8.1 (10.0-20.0) Serum Glucose 83 mg/dL (74-106) Calcium Level 8.6 mg/dL (8.7-10.4) Total Bilirubin 0.4 mg/dL (0.2-1.0) Aspartate Amino Transferase (AST) 10 U/L (13-40) Alanine Aminotransferase (ALT) 11 U/L (7-40) Alkaline Phosphatase 46 U/L (46-116) Total Protein 5.3 g/dL (5.7-8.2) Albumin 3.1 g/dL (3.2-4.8) Stool Occult Blood Positive (Negative) Stool Occult Blood Sample #3 (Negative) Test 11/26/24 21:28 11/26/24 09:26 Prothrombin Time 11.5 sec (9.3-11.8) Prothrombin Time INR 1.09 (0.9-1.15) Activated Partial Thromboplast Time 22.7 SEC (24.5-34.5) Urine Color Yellow (Yellow) Urine Clarity Clear (Clear) Urine pH 5.0 (5.0-9.0) Urine Specific [place] 1.050 (1.001-1.035) Urine Protein Negative (Negative) Urine Ketones Negative (Negative) Urine Blood 1+ /uL (Negative) Urine Nitrite Negative (Negative) Urine Bilirubin Negative (Negative) Urine Urobilinogen Normal mg/dL (Negative) Urine Leukocyte Esterase Negative /uL (Negative) Urine RBC 3 /hpf (0 - 3) Urine Microscopic WBC 2 /HPF (0-3) Urine Squamous Epithelial Cells Few /hpf (<5) Urine Bacteria None seen /hpf (None Seen) Urine Mucus Few (None Seen) Urine Glucose Normal mg/dL (Normal) Other Laboratory Tests 12/03/24 05:05 12/01/24 05:26 Brief Hx & Hospital Course: 59-year-old male with a history of hypertension came in for lower GI bleed found to have diverticular disease MRI at by colonoscopy by Dr. Kayli Leonard placed on pantoprazole and iron tablets. Patient received 2 units of RBC transfusion for for anemia and hemoglobin stable at 9.0 discharged home. Abdominal angiogram negative for any arterial bleeding. Discharged home. He will follow up with the his primary Dr and GI Dr. Kayli Leonard. Prescription transmitted to the pharmacy, Consults/Reason for consult GI Dr. Kayli Lenoard Colonoscopy Operations or Procedures RBC transfusion Colonoscopy Condition at Discharge: Fair Final Diagnosis/Problems List Lower GI bleed : GI consult appreciated, GI bleed secondary to diverticular disease and external hemorrhoids Anemia due to above status post 2 units RBC transfusion, hemoglobin stable at 9.0 Leukocytosis, reactive likely, likely due to above Intravascular volume depletion Neutrophilia Hypertension Abdominal angiography negative for any arterial bleeding Discharge Disposition: Home Discharge Instruct/Medications Diet: Regular Activity: Light activity Follow Up/Referral: Follow up with the primary Dr in one week Follow up with the GI Dr. Kayli Leonard in two weeks Medications: Pantoprazole Iron tablets Transmitted to [facility]'s Scheduled Ferrous Sulfate (Iron), 325 MG PO BID Pantoprazole Sodium Sesquihydr (Pantoprazole Sodium), 40 MG PO BID 39 (Time taken for discharge summary 39 mts) Discharge Statement: "Patient was advised to return to the ER or call 911 if any headaches, dizziness, shortness of breath, chest pain, abdominal pain, bleeding, fevers, or worsening of medical condition. Patient was counseled about treatment plan, medications, possible side effects, patientverbalized understanding. All questions were answered to the best of my ability. This discharge took greater then 30 minutes in planning, reviewing documentation, counseling the patient, and discussing with other team members." ASSESSMENT ASSESSMENT Hospital Course Improved Assessment Lower GI bleed : GI consult appreciated, GI bleed secondary to diverticular disease and external hemorrhoids Anemia due to above status post 2 units RBC transfusion, hemoglobin stable at 9.0 Leukocytosis, reactive likely, likely due to above Intravascular volume depletion Neutrophilia Hypertension Abdominal angiography negative for any arterial bleeding Date of Service: Dec 03, 2024 Billing Provider: PURVI DAMON MD Common Visit Codes: [id number] DISCH DAY >30min PURVI DAMON MD Dec 03, 2024 10:24
[2024-12-03 11:24] VITALS: BP 142/69; PULSE 79; RESP 18; TEMP 98.1; O2SAT 94
[2024-12-03 13:00] VITALS: BP 128/64; PULSE 75; RESP 17; TEMP 98.5; O2SAT 99
== END 2024-12-03 14:00 | disposition home or self-care (01) | DRG 393 ==
LOC: EDBD 20:23 → ER 20:23 → OVERFLOW 11-27 01:24 → CENTRAL 11-27 14:59 → TELE-CENTR 11-28 17:21
PROVIDERS: ADMIT Family Medicine; ATTEND Family Medicine
PROC: 30233N1 Transfusion of Nonautologous Red Blood Cells into Peripheral Vein, Percutaneous Approach (ICD-10-PCS; 2024-11-27)
PROC: 0DJD8ZZ Inspection of Lower Intestinal Tract, Via Natural or Artificial Opening Endoscopic (ICD-10-PCS; principal; 2024-11-28 12:38)
DX: K64.4 Residual hemorrhoidal skin tags (principal); K57.31 Diverticulosis of large intestine without perforation or abscess with bleeding; D62 Acute posthemorrhagic anemia; K64.8 Other hemorrhoids; D72.829 Elevated white blood cell count, unspecified; E86.9 Volume depletion, unspecified; I10 Essential (primary) hypertension; I95.9 Hypotension, unspecified; R55 Syncope and collapse; K64.0 First degree hemorrhoids; Z79.899 Other long term (current) drug therapy
CPT/HCPCS: 36415; 36430; 71045; 74175; 74177; 80048; 80053; 81001; 82270; 85014; 85018; 85025; 85610; 85730; 86850; 86900; 86901; 86920; 93005; 96361; 96374; 99291; G0378; J1100; J1756; J2250; J2470; J2704; J3480